=== PATIENT | male | born 1995 | race Caucasian/White ===

== ENCOUNTER 2023-05-23 15:40 | Emergency (ER) | payer SELFPAY ==
[~2023-05-23] VITALS: Ht 180.3 cm; Wt 88.6 kg
[2023-05-23 15:46] VITALS: TEMP 98.2
[2023-05-23] MEDS ORDERED: ATARAX 25MG25 MG/TAB PO (17:04)
[2023-05-23 17:07] VITALS: BP 121/75; PULSE 75
[2023-05-23] MEDS ORDERED: hydrOXYzine HCl 25 MG TAB PO ONE ×2 (17:15)
== END 2023-05-23 17:24 | disposition home or self-care (01) ==
LOC: COL.ER 15:40
DX: L50.9 Urticaria, unspecified (principal)